=== PATIENT | female | born 1955 | race Caucasian/White ===

== ENCOUNTER 2019-06-30 12:37 | Inpatient (IN) | payer MEDICARE, MEDICAID ==
[~2019-06-30] VITALS: Ht 154.9 cm; Wt 57.4 kg
[2019-06-30] MEDS ORDERED: HALOPERIDOL 5 MG TABLET PO PRN (16:45)
[2019-06-30] MEDS ORDERED: ZOLPIDEM TARTRATE 10 MG TABLET PO PRN (16:45)
[2019-06-30] MEDS ORDERED: LORazepam 2 MG TABLET PO PRN (16:45)
[2019-06-30] MEDS ORDERED: DiphenhydrAMINE HCL 50 MG/ML VIAL IM ONE (17:45)
[2019-06-30] MEDS ORDERED: HALOPERIDOL LACTATE 5 MG/ML VIAL IM ONE (17:45)
[2019-06-30] MEDS ORDERED: LORazepam 2 MG/ML VIAL IM ONE (17:45)
[2019-06-30] MEDS ORDERED: INFLUENZA VIRUS VACCINE QVS 2019-20 (3YR+)/PF 60 MCG/0.5 ML SYRINGE IM ONE (17:45)
[2019-06-30 18:49] VITALS: BP 127/71
[2019-07-01 05:38] VITALS: BP 118/74
[2019-07-01 07:55] LABS: EOSINOPHILS % (AUTO) 2.4 % (1.0-6.0); HEMATOCRIT 42.5 % (36-46); HEMOGLOBIN 14.5 g/dL (12.0-16.0); LYMPHOCYTES # (AUTO) 2.1 K/uL (1.0-4.8); LYMPHOCYTES % (AUTO) 29.6 % (22.0-44.0); MEAN CORPUSCULAR HEMOGLOBIN 31.6 pg (26.0-34.0); MEAN CORPUSCULAR HGB CONC 34.1 G/dL (31.0-37.0); MEAN CORPUSCULAR VOLUME 93 fL (80-100); MONOCYTES # (AUTO) 0.4 K/uL (0.1-1.0); MONOCYTES % (AUTO) 6.1 % (2.0-9.0); NEUTROPHILS # (AUTO) 4.3 K/uL (1.8-7.7); NEUTROPHILS % (AUTO) 60.9 % (40.0-70.0); PLATELET COUNT (AUTO) 223 K/uL (150-450); RED BLOOD CELL COUNT(AUTO) 4.59 MIL/uL (4.00-5.20); RED CELL DISTRIBUTION WIDTH 12.5 % (11.5-14.5)
[2019-07-01 08:22] LABS: ALBUMIN 4.2 g/dL (3.4-5.0); BILIRUBIN,TOTAL 0.7 mg/dL (0.1-1.0); CALCIUM, TOTAL 9.5 mg/dL (8.8-10.5); CHOL/HDL RATIO 2.3 (3.9-5.7); CREATININE 6.12 mg/dL (0.60-1.30); FREE T4 (FREE THYROXINE) 1.34 ng/dL (0.76-1.46); POTASSIUM 3.9 mmol/L (3.5-5.1); THYROID STIMULATING HORMONE 3.91 uIU/mL (0.36-3.74); TOTAL PROTEIN, SERUM 8.7 g/dL (6.4-8.2)
[2019-07-01 08:26] LABS: HEMOGLOBIN A1C 4.9 % (4.5-6.2)
[2019-07-01 08:29] VITALS: BP 146/94
[2019-07-01] MEDS: ARIPiprazole 10 MG TABLET PO SCH ×2 (13:15→13:40)
[2019-07-01] MEDS: ESCITALOPRAM OXALATE 10 MG TABLET PO SCH ×2 (13:15→13:40)
[2019-07-01 16:00] VITALS: BP 141/99
[2019-07-01] MEDS ORDERED: DiphenhydrAMINE HCL 50 MG/ML VIAL IM ONE (16:15)
[2019-07-01] MEDS ORDERED: HALOPERIDOL LACTATE 5 MG/ML VIAL IM ONE (16:15)
[2019-07-01] MEDS ORDERED: LORazepam 2 MG/ML VIAL IM ONE (16:15)
[2019-07-01 17:00] VITALS: BP 115/74
[2019-07-02 00:08] VITALS: BP 107/67
[2019-07-02] MEDS: ARIPiprazole 10 MG TABLET PO SCH (08:16)
[2019-07-02] MEDS: ESCITALOPRAM OXALATE 10 MG TABLET PO SCH (08:16)
[2019-07-02 08:17] VITALS: BP 130/73
[2019-07-02 16:00] VITALS: BP 132/82
[2019-07-03 00:54] VITALS: BP 120/82
[2019-07-03 08:06] VITALS: BP 117/85
[2019-07-03] MEDS: ESCITALOPRAM OXALATE 10 MG TABLET PO SCH (08:08)
[2019-07-03] MEDS: ARIPiprazole 10 MG TABLET PO SCH (08:08)
[2019-07-03 16:18] VITALS: BP 153/82
[2019-07-03 17:00] VITALS: BP 136/78
[2019-07-03] MEDS ORDERED: OLANZapine 5 MG TABLET PO SCH (21:00)
[2019-07-04 08:47] VITALS: BP 138/81
[2019-07-04] MEDS: ARIPiprazole 10 MG TABLET PO SCH (08:47)
[2019-07-04] MEDS: ESCITALOPRAM OXALATE 10 MG TABLET PO SCH (08:47)
[2019-07-04 16:01] VITALS: BP 130/82
[2019-07-04] MEDS ORDERED: ESCI5TAB PO (16:18)
[2019-07-04] MEDS ORDERED: ARIP10TA8 PO (16:18)
[2019-07-04] MEDS ORDERED: OLAN5TAB2 PO (16:18)
== END 2019-07-04 20:05 | disposition home or self-care (01) | DRG 885 ==
LOC: B2X 14:42
PROVIDERS: ADMIT Psychiatry & Neurology Child & Adolescent Psychiatry; ATTEND Psychiatry & Neurology Child & Adolescent Psychiatry
DX: F20.0 Paranoid schizophrenia (principal); E03.9 Hypothyroidism, unspecified; E55.9 Vitamin D deficiency, unspecified; E78.5 Hyperlipidemia, unspecified; J30.9 Allergic rhinitis, unspecified; R79.89 Other specified abnormal findings of blood chemistry; N18.9 Chronic kidney disease, unspecified; Z91.5 Personal history of self-harm; Z91.83 Wandering in diseases classified elsewhere; Z28.21 Immunization not carried out because of patient refusal; Z88.8 Allergy status to other drugs, medicaments and biological substances
CPT/HCPCS: 80074; 83036; 84439; 84443; 90686; J1200; J1630; J2060

== ENCOUNTER 2019-11-03 12:56 | Inpatient (IN) | payer MEDICARE, MEDICAID ==
[~2019-11-03] VITALS: Ht 160 cm; Wt 56.7 kg
[~2019-11-03 12:56] MED LIST: ARIP10TA8 PO; ESCI5TAB PO; OLAN5TAB2 PO
[2019-11-03 16:29] VITALS: BP 124/88
[2019-11-03] MEDS ORDERED: ZOLPIDEM TARTRATE 10 MG TABLET PO PRN (16:30)
[2019-11-03] MEDS ORDERED: HALOPERIDOL 5 MG TABLET PO PRN (16:30)
[2019-11-03] MEDS ORDERED: LORazepam 1 MG TABLET PO PRN (16:30)
[2019-11-03] MEDS ORDERED: TUBERCULIN, PURIFIED PROTEIN DERIVATIVE 5 TU/0.1 ML SYRINGE ID ONE (16:30)
[2019-11-03] MEDS ORDERED: LORazepam 2 MG TABLET PO PRN (16:30)
[2019-11-03] MEDS ORDERED: LORazepam 2 MG/ML VIAL ONE (17:22)
[2019-11-03] MEDS ORDERED: DiphenhydrAMINE HCL 50 MG/ML VIAL ONE (17:22)
[2019-11-03] MEDS ORDERED: LORazepam 2 MG/ML VIAL IM ONE (17:30)
[2019-11-03] MEDS ORDERED: HALOPERIDOL LACTATE 5 MG/ML VIAL IM ONE (17:30)
[2019-11-03] MEDS ORDERED: DiphenhydrAMINE HCL 50 MG/ML VIAL IM ONE (17:30)
[2019-11-04 06:40] VITALS: BP 124/71
[2019-11-04 07:54] LABS: BASOPHILS % (AUTO) 0.8 % (0.0-2.0); EOSINOPHILS % (AUTO) 0.6 % (1.0-6.0); HEMATOCRIT 45.8 % (36-46); HEMOGLOBIN 14.9 g/dL (12.0-16.0); LYMPHOCYTES # (AUTO) 1.2 K/uL (1.0-4.8); LYMPHOCYTES % (AUTO) 15.4 % (22.0-44.0); MEAN CORPUSCULAR HEMOGLOBIN 30.4 pg (26.0-34.0); MEAN CORPUSCULAR HGB CONC 32.6 G/dL (31.0-37.0); MEAN CORPUSCULAR VOLUME 93 fL (80-100); MONOCYTES # (AUTO) 0.6 K/uL (0.1-1.0); MONOCYTES % (AUTO) 7.5 % (2.0-9.0); NEUTROPHILS # (AUTO) 5.7 K/uL (1.8-7.7); NEUTROPHILS % (AUTO) 75.7 % (40.0-70.0); PLATELET COUNT (AUTO) 243 K/uL (150-450); RED CELL DISTRIBUTION WIDTH 12.8 % (11.5-14.5)
[2019-11-04 08:12] VITALS: BP 146/95
[2019-11-04 08:20] LABS: ALBUMIN 4.6 g/dL (3.4-5.0); BILIRUBIN,TOTAL 0.4 mg/dL (0.1-1.0); CALCIUM, TOTAL 9.9 mg/dL (8.8-10.5); CREATININE 6.44 mg/dL (0.60-1.30); POTASSIUM 5.1 mmol/L (3.5-5.1); TOTAL PROTEIN, SERUM 9.4 g/dL (6.4-8.2)
[2019-11-04] MEDS ORDERED: ESCITALOPRAM OXALATE 10 MG TABLET PO SCH (09:45)
[2019-11-04] MEDS ORDERED: ARIPiprazole 15 MG TABLET PO SCH (09:45)
== END 2019-11-04 14:00 | disposition short-term general hospital (02) | DRG 885 ==
LOC: B3A 16:24
PROVIDERS: ADMIT Psychiatry & Neurology Child & Adolescent Psychiatry; ATTEND Psychiatry & Neurology Child & Adolescent Psychiatry
DX: F25.1 Schizoaffective disorder, depressive type (principal); N18.6 End stage renal disease; E78.5 Hyperlipidemia, unspecified; N18.9 Chronic kidney disease, unspecified; I12.9 Hypertensive chronic kidney disease with stage 1 through stage 4 chronic kidney disease, or unspecified chronic kidney disease; Z91.19 Patient's noncompliance with other medical treatment and regimen; Z88.2 Allergy status to sulfonamides; Z88.8 Allergy status to other drugs, medicaments and biological substances
CPT/HCPCS: 87081; J1200; J1630; J2060